=== PATIENT | female | born 1945 | race Caucasian/White ===

== ENCOUNTER → 2019-01-11 | Outpatient (CLI) | payer MEDICARE ==
[2019-01-11 09:59] LABS: HCT 46.1 % (34.0-46.0); HGB 14.9 gm/dL (11.4-16.0); MCH 29.9 pg (25.0-35.0); MCHC 32.4 g/dL (31.0-37.0); MCV 92.2 fL (80.0-100.0); Mean Platelet Volume 7.1; Platelet Count 283 k/uL (150-450); RDW 14.7 % (11.5-15.5); WBC 5.5 k/uL (3.8-10.6)
[2019-01-11 16:19] LABS: African American GFR (CKD) 104.1 (60.0-200.0); Albumin/Globulin Ratio 2.35 (1.60-3.17); BUN/Creat Ratio 31.67 Ratio (12.00-20.00); Calcium 8.9 mg/dL (8.7-10.3); Globulin 1.7 g/dL (1.6-3.3); Potassium 3.9 mmol/L (3.5-5.5); Total Bilirubin 0.5 mg/dL (0.2-1.2); Total Protein 5.7 g/dL (6.2-8.2)
[2019-01-11 21:04] LABS: Hemoglobin A1C 5.7 % (4.0-6.0)
== END | disposition home or self-care (01) ==
LOC: LABWHC1 08:51
PROVIDERS: ATTEND Physician Assistant
DX: R21 Rash and other nonspecific skin eruption (principal)
CPT/HCPCS: 36415; 80053; 83036; 84443; 85027

== ENCOUNTER 2020-09-07 09:59 | Observation (INO) | payer MEDICARE ==
[2020-09-07] MEDS ORDERED: SODIUM CHLORIDE 0.9% 500 ML 500 ML IV STA (10:21)
[2020-09-07] MEDS ORDERED: ASPIRIN 81 MG PO STA (10:21)
--- NOTE | 2020-09-07 10:24 | ED ---
General Adult HPI - General Chief complaint: Chest Pain Stated complaint: Chest pain/sent by PCP Time Seen by Provider: 09/07/20 10:05 Source: patient Mode of arrival: ambulatory Limitations: no limitations - History of Present Illness Initial comments: 75-year-old female without any significant past medical history presents to the emergency room for a chief complaint of chest discomfort. She was sent in by primary care. Patient states that she is getting over a rotavirus, was diagnosed this about 4 weeks ago. States that at least since that time if not before she has had a constant low intensity pressure in her chest. States she also gets winded at the grocery store. Patient states she thinks she is fine by her primary care wanted her to be seen. Patient denies any radiating pain. Denies pain worsening on exertion. Patient does not have a smoking history. Patient also reports she has had high blood pressure for the past week. She does not take any blood pressure medication. She was not started on blood pressure medications today at the primary care provider's office. Patient has no other complaints at this time including shortness of breath, abdominal pain, nausea or vomiting, headache, or visual changes. - Related Data Home Medications Medication Instructions Recorded Confirmed Ascorbic Acid [Vitamin C] 500 mg PO DAILY 09/07/20 09/07/20 Multivit-Min/FA/Lycopen/Lutein 1 tab PO DAILY 09/07/20 09/07/20 [Centrum Silver Tablet] Allergies Allergy/AdvReac Type Severity Reaction Status Date / Time No Known Allergies Allergy Verified 09/07/20 11:03 Review of Systems ROS Statement: Those systems with pertinent positive or pertinent negative responses have been documented in the HPI. ROS Other: All systems not noted in ROS Statement are negative. Past Medical History Past Medical History: Liver Disease Additional Past Medical History / Comment(s): hx. hepatitis as a child, hx. colon polyps History of Any Multi-Drug Resistant Organisms: None Reported Past Surgical History: Appendectomy, Section Additional Past Surgical History / Comment(s): colonoscopy Past Anesthesia/Blood Transfusion Reactions: No Reported Reaction Past Psychological History: No Psychological Hx Reported Past Alcohol Use History: Rare Past Drug Use History: None Reported General Exam Limitations: no limitations General appearance: alert, in no apparent distress Head exam: Present: atraumatic, normocephalic, normal inspection Eye exam: Present: normal appearance, PERRL, EOMI. Absent: scleral icterus, conjunctival injection, periorbital swelling ENT exam: Present: normal exam, mucous membranes moist Neck exam: Present: normal inspection, full ROM. Absent: tenderness, meningis mus, lymphadenopathy Respiratory exam: Present: normal lung sounds bilaterally. Absent: respiratory distress, wheezes, rales, rhonchi, stridor Cardiovascular Exam: Present: regular rate, normal rhythm, normal heart sounds. Absent: systolic murmur, diastolic murmur, rubs, gallop, clicks GI/Abdominal exam: Present: soft, normal bowel sounds. Absent: distended, tenderness, guarding, rebound, rigid Course Vital Signs 09/07/20 10:01 Temperature 97.7 F Pulse Rate 62 Respiratory 18 Rate Blood Pressure 152/86 O2 Sat by Pulse 98 Oximetry EKG Findings - EKG Comments: EKG Findings:: Sinus bradycardia, ventricular rate 56, NM interval 168, QTC 426 Medical Decision Making - Medical Decision Making Vital are stable. Vitals are stable. CBC CMP unremarkable. EKG nonischemic. Troponin negative. Normal age-adjusted d-dimer. Chest x-ray shows no acute cardiopulmonary process. According to patient, she has never had a cardiac workup. Discussed with primary care provider, at this time patient will be admitted for cardial station. - Lab Data Result diagrams: 09/07/20 10:22 09/07/20 10:22 Lab Results 09/07/20 09/07/20 09/07/20 Range/Units 10:22 10:22 10:22 WBC 6.2 (3.8-10.6) k/uL RBC 5.14 (3.80-5.40) m/uL Hgb 15.7 (11.4-16.0) gm/dL Hct 47.0 H (34.0-46.0) % MCV 91.4 (80.0-100.0) fL MCH 30.6 (25.0-35.0) pg MCHC 33.4 (31.0-37.0) g/dL RDW 13.3 (11.5-15.5) % Plt Count 271 (150-450) k/uL MPV 7.0 Neutrophils % 67 % Lymphocytes % 23 % Monocytes % 5 % Eosinophils % 3 % Basophils % 1 % Neutrophils # 4.2 (1.3-7.7) k/uL Lymphocytes # 1.4 (1.0-4.8) k/uL Monocytes # 0.3 (0-1.0) k/uL Eosinophils # 0.2 (0-0.7) k/uL Basophils # 0.0 (0-0.2) k/uL PT 10.2 (9.0-12.0) sec INR 0.9 (<1.2) APTT 25.5 (22.0-30.0) sec D-Dimer 0.62 H (<0.60) mg/L FEU Sodium 141 (137-145) mmol/L Potassium 4.1 (3.5-5.1) mmol/L Chloride 106 (98-107) mmol/L Carbon Dioxide 27 (22-30) mmol/L Anion Gap 8 mmol/L BUN 17 (7-17) mg/dL Creatinine 0.67 (0.52-1.04) mg/dL Est GFR (CKD-EPI)AfAm >90 (>60 ml/min/1.73 sqM) Est GFR (CKD-EPI)NonAf 86 (>60 ml/min/1.73 sqM) Glucose 101 H (74-99) mg/dL Calcium 8.9 (8.4-10.2) mg/dL Magnesium 2.0 (1.6-2.3) mg/dL Total Bilirubin 0.5 (0.2-1.3) mg/dL AST 25 (14-36) U/L ALT 19 (4-34) U/L Alkaline Phosphatase 141 H (38-126) U/L Troponin I (0.000-0.034) ng/mL NT-Pro-B Natriuret Pep pg/mL Total Protein 6.8 (6.3-8.2) g/dL Albumin 4.1 (3.5-5.0) g/dL Lipase 46 (23-300) U/L 09/07/20 09/07/20 Range/Units 10:22 10:22 WBC (3.8-10.6) k/uL RBC (3.80-5.40) m/uL Hgb (11.4-16.0) gm/dL Hct (34.0-46.0) % MCV (80.0-100.0) fL MCH (25.0-35.0) pg MCHC (31.0-37.0) g/dL RDW (11.5-15.5) % Plt Count (150-450) k/uL MPV Neutrophils % % Lymphocytes % % Monocytes % % Eosinophils % % Basophils % % Neutrophils # (1.3-7.7) k/uL Lymphocytes # (1.0-4.8) k/uL Monocytes # (0-1.0) k/uL Eosinophils # (0-0.7) k/uL Basophils # (0-0.2) k/uL PT (9.0-12.0) sec INR (<1.2) APTT (22.0-30.0) sec D-Dimer (<0.60) mg/L FEU Sodium (137-145) mmol/L Potassium (3.5-5.1) mmol/L Chloride (98-107) mmol/L Carbon Dioxide (22-30) mmol/L Anion Gap mmol/L BUN (7-17) mg/dL Creatinine (0.52-1.04) mg/dL Est GFR (CKD-EPI)AfAm (>60 ml/min/1.73 sqM) Est GFR (CKD-EPI)NonAf (>60 ml/min/1.73 sqM) Glucose (74-99) mg/dL Calcium (8.4-10.2) mg/dL Magnesium (1.6-2.3) mg/dL Total Bilirubin (0.2-1.3) mg/dL AST (14-36) U/L ALT (4-34) U/L Alkaline Phosphatase (38-126) U/L Troponin I <0.012 (0.000-0.034) ng/mL NT-Pro-B Natriuret Pep 52 pg/mL Total Protein (6.3-8.2) g/dL Albumin (3.5-5.0) g/dL Lipase (23-300) U/L Disposition Clinical Impression: Chest pain Disposition: ADMITTED IP TO THIS HOSP Condition: Good Is patient prescribed a controlled substance at d/c from ED?: No Referrals: Jluis Chopra MD [Primary Care Provider] - 1-2 days Time of Disposition: 13:09
--- NOTE | 2020-09-07 10:37 | XR ---
EXAMINATION TYPE: XR chest 2V DATE OF EXAM: 09/07/2020 COMPARISON: NONE HISTORY: Chest heaviness and pain. TECHNIQUE: Frontal and lateral views of the chest are obtained. FINDINGS: Overlying EKG leads. There is mild chronic parenchymal change without suspicious focal air space opacity, pleural effusion, or pneumothorax seen. The cardiac silhouette size is within normal limits. The osseous structures are intact. Overlying EKG leads. Slightly elevated left hemidiaphrag m. IMPRESSION: No acute cardiopulmonary process.
[2020-09-07 10:39] LABS: Basophils % (A) 1 %; Eosinophils # (A) 0.2 k/uL (0-0.7); Eosinophils % (A) 3 %; HGB 15.7 gm/dL (11.4-16.0); Lymphocytes # (A) 1.4 k/uL (1.0-4.8); Lymphocytes % (A) 23 %; MCH 30.6 pg (25.0-35.0); MCHC 33.4 g/dL (31.0-37.0); MCV 91.4 fL (80.0-100.0); Monocytes # (A) 0.3 k/uL (0-1.0); Monocytes % (A) 5 %; Neutrophils # (A) 4.2 k/uL (1.3-7.7); Neutrophils % (A) 67 %; Platelet Count 271 k/uL (150-450); RBC 5.14 m/uL (3.80-5.40); RDW 13.3 % (11.5-15.5); WBC 6.2 k/uL (3.8-10.6)
[2020-09-07 10:53] LABS: ALT 19 U/L (4-34); AST 25 U/L (14-36); African American GFR (CKD) >90 (>60 ml/min/1.73 sqM); Albumin 4.1 g/dL (3.5-5.0); Alkaline Phosphatase 141 U/L (38-126); Anion Gap 8 mmol/L; Blood Urea Nitrogen 17 mg/dL (7-17); Calcium 8.9 mg/dL (8.4-10.2); Carbon Dioxide 27 mmol/L (22-30); Chloride 106 mmol/L (98-107); Glucose 101 mg/dL (74-99); Lipase 46 U/L (23-300); Non-African American GFR(CKD) 86 (>60 ml/min/1.73 sqM); Potassium 4.1 mmol/L (3.5-5.1); Sodium 141 mmol/L (137-145); Total Bilirubin 0.5 mg/dL (0.2-1.3); Total Protein 6.8 g/dL (6.3-8.2)
[2020-09-07 10:54] LABS: INR 0.9 (<1.2); Partial Thromboplastin Time 25.5 sec (22.0-30.0); Prothrombin Time 10.2 sec (9.0-12.0)
[2020-09-07 12:09] LABS: D-Dimer 0.62 mg/L FEU (<0.60)
[2020-09-07] MEDS ORDERED: NITROGLYCERIN SL TABS 0.4 MG TAB SUBLINGUAL PRN (12:58)
[2020-09-07] MEDS: BENZONATATE 100 MG CAP PO SCH ×2 (18:09→22:51)
[2020-09-07] MEDS: hydrALAZINE HCL 20 MG/ML 1 ML VIAL IVP PRN (18:49)
[2020-09-07] MEDS: ACETAMINOPHEN TAB 325 MG TAB PO PRN (18:50)
--- NOTE | 2020-09-07 20:25 | CT ---
EXAMINATION TYPE: CT angio chest DATE OF EXAM: 09/07/2020 8:11 PM COMPARISON: Same day radiographs. HISTORY: chest pain CT DLP: 432.9 mGycm Automated exposure control for dose reduction was used. CONTRAST: CTA scan of the thorax is performed with IV Contrast, patient injected with 100 mL of Isovue 370, pul monary embolism protocol. MIP images are created and reviewed. FINDINGS: LUNGS: There is minimal right middle lobe atelectasis/scarring. Otherwise the lungs are grossly clear , there is no concerning parenchymal mass or nodule identified. There is no pleural effusion or pne umothorax seen. The tracheobronchial tree is patent. MEDIASTINUM: There is satisfactory enhancement of the pulmonary artery and its branches, there is no CT evidence for pulmonary embolism. There are no greater than 1 cm hilar or mediastinal lymph nodes. No pericardial effusion is seen. OTHER: No additional significant abnormality is seen. IMPRESSION: NO ACUTE PE OR OTHER CARDIOPULMONARY ABNORMALITY. Right middle lobe atelectasis/scarring.
[2020-09-07 20:32] VITALS: RESP 16
[2020-09-08] MEDS: hydrALAZINE HCL 20 MG/ML 1 ML VIAL IVP PRN (04:35)
[2020-09-08] MEDS: ACETAMINOPHEN TAB 325 MG TAB PO PRN ×2 (04:36→11:38)
--- NOTE | 2020-09-08 06:58 | P.HPIM ---
History of Present Illness H&P Date: 09/08/20 Chief Complaint: Chest discomfort 75-year-old female without significant medical history. She was admitted to the hospital for continuous chest heaviness/chest discomfort for 3 day duration. Last Sunday patient had an episode of severe chest heaviness with a heart rate of 43 and a blood pressure of 210/110; chest heaviness continue until seen in primary care office. Patient has strong family medical history of cardiovascular events. Patient was sent to the emergency department for further diagnostic workup. Patient's troponins were negative 3, no acute EKG changes. Patient had hypertensive episodes throughout the night hydralazine 10 mg IV push every 6 hours was ordered. Patient continues to endorse chest discomfort with exertion, and mild headache. Patient denies fever, chills, shortness of breath, abdominal pain, nausea, vomiting or diarrhea. Patient currently in no acute signs of distress. Awaiting recommendations from cardiology for treatment plan Review of Systems Constitutional: Reports as per HPI Ears, nose, mouth and throat: Reports as per HPI Cardiovascular: Reports high blood pressure Respiratory: Reports as per HPI Gastrointestinal: Reports as per HPI Genitourinary: Reports as per HPI Menstruation: Reports as per HPI Musculoskeletal: Reports as per HPI Integumentary: Reports as per HPI Neurological: Reports headaches Psychiatric: Reports as per HPI Endocrine: Reports as per HPI Hematologic/Lymphatic: Reports as per HPI Allergic/Immunologic: Reports as per HPI Past Medical History Past Medical History: Liver Disease Additional Past Medical History / Comment(s): Pt states she tested covid + on 08/18/[address] Other hx: Pt has been monitoring B/P this week and it has been elevated, hepatitis as a child, scarletina, benign colon polyp History of Any Multi-Drug Resistant Organisms: None Reported Past Surgical History: Appendectomy, Section Additional Past Surgical History / Comment(s): colonoscopy/benign polyp, laser surgery bilaterally for vision correction. Past Anesthesia/Blood Transfusion Reactions: No Reported Reaction Past Psychological History: No Psychological Hx Reported Additional Psychological History / Comment(s): Pt resides with her spouse. She is independent. Smoking Status: Never smoker Past Alcohol Use History: Rare Past Drug Use History: None Reported - Past Family History Mother Family Medical History: CVA/TIA Additional Family Medical History / Comment(s): CVAs Father Additional Family Medical History / Comment(s): Father drowned saving a child. Medications and Allergies Home Medications and Allergies Comment(s): Medications and ALLERGIES reviewed Home Medications Medication Instructions Recorded Confirmed Type Ascorbic Acid [Vitamin C] 500 mg PO DAILY 09/07/20 09/07/20 History Multivit-Min/FA/Lycopen/Lutein 1 tab PO DAILY 09/07/20 09/07/20 History [Centrum Silver Tablet] Allergies Allergy/AdvReac Type Severity Reaction Status Date / Time No Known Allergies Allergy Verified 09/07/20 11:03 Physical Exam Vitals: Vital Signs Temp Pulse Pulse Resp BP BP BP 09/08/20 03:00 65 16 150/68 09/07/20 20:00 97.8 F 66 16 153/67 09/07/20 18:03 98.0 F 61 18 182/82 09/07/20 13:23 55 L 18 171/87 09/07/20 10:01 97.7 F 62 18 152/86 Pulse Ox 09/08/20 03:00 96 09/07/20 20:00 97 09/07/20 18:03 98 09/07/20 13:23 96 09/07/20 10:01 98 Intake and Output 09/07/20 09/07/20 09/08/20 14:59 22:59 06:59 Other: # Voids 1 1 Weight 90.718 kg - Constitutional General appearance: cooperative - EENT Eyes: EOMI, PERRLA Ears: bilateral: normal - Neck Neck: normal ROM Carotids: bilateral: upstroke normal - Respiratory Respiratory: bilateral: CTA (Anterior posterior lung tiwari) - Cardiovascular Sinus bradycardia Heart rate: 58 Rhythm: regular Heart sounds: normal: S1, S2 radial pulse Peripheral Pulses: bilateral: Normal dorsalis pedis Peripheral Pulses: bilateral: Normal - Gastrointestinal General gastrointestinal: normal bowel sounds - Integumentary Integumentary: normal - Neurologic Neurologic: CNII-XII intact - Musculoskeletal Musculoskeletal: gait normal, strength equal bilaterally - Psychiatric Psychiatric: A&O x's 3, appropriate affect, intact judgment & insight Results CBC & Chem 7: 09/07/20 10:22 09/07/20 10:22 Labs: Abnormal Lab Results - Last 24 Hours (Table) 09/07/20 09/07/20 09/07/20 Range/Units 10:22 10:22 10:22 Hct 47.0 H (34.0-46.0) % D-Dimer 0.62 H (<0.60) mg/L FEU Glucose 101 H (74-99) mg/dL Alkaline Phosphatase 141 H (38-126) U/L Abdominal x-ray: report reviewed CT scan - chest: report reviewed Thrombosis Risk Factor Assmnt - Choose All That Apply Any of the Below Risk Factors Present?: Yes Each Factor Represents 1 point: Obesity (BMI >25) Other Risk Factors: Yes Each Risk Factor Represents 3 Points: Age 75 years or older Other congenital or acquired thrombophilia - If yes, enter type in comment: No Thrombosis Risk Factor Assessment Total Risk Factor Score: 4 Thrombosis Risk Factor Assessment Level: Moderate Risk Assessment and Plan Assessment: Chest painnegative troponins 3, no acute EKG changesconsultation with cardiology for recommendations and treatment plan Hypertensioncontinue hydralazine 10 mg IV push every 6 hours for blood pressure greater than 160/90we will add oral antihypertensive once cleared by cardiology Headacheanalgesics as needed Continue to monitor vital signs and diagnostic testing Continue medical management Further recommendations to come based on patient's clinical condition Time with Patient: Greater than 30
[2020-09-08 07:49] LABS: Basophils % (A) 0 %; Eosinophils # (A) 0.1 k/uL (0-0.7); Eosinophils % (A) 2 %; HCT 45.1 % (34.0-46.0); HGB 15.2 gm/dL (11.4-16.0); Lymphocytes # (A) 1.3 k/uL (1.0-4.8); Lymphocytes % (A) 17 %; MCH 30.9 pg (25.0-35.0); MCHC 33.7 g/dL (31.0-37.0); MCV 91.6 fL (80.0-100.0); Mean Platelet Volume 7.1; Monocytes # (A) 0.4 k/uL (0-1.0); Monocytes % (A) 5 %; Neutrophils # (A) 5.5 k/uL (1.3-7.7); Neutrophils % (A) 74 %; Platelet Count 279 k/uL (150-450); RBC 4.93 m/uL (3.80-5.40); RDW 13.4 % (11.5-15.5); WBC 7.4 k/uL (3.8-10.6)
[2020-09-08 08:02] LABS: ALT 18 U/L (4-34); AST 26 U/L (14-36); African American GFR (CKD) >90 (>60 ml/min/1.73 sqM); Albumin 3.6 g/dL (3.5-5.0); Alkaline Phosphatase 115 U/L (38-126); Anion Gap 7 mmol/L; Blood Urea Nitrogen 17 mg/dL (7-17); Calcium 8.8 mg/dL (8.4-10.2); Carbon Dioxide 24 mmol/L (22-30); Chloride 108 mmol/L (98-107); Cholesterol 220 mg/dL (<200); Glucose 110 mg/dL (74-99); HDL Cholesterol 49 mg/dL (40-60); LDL Cholesterol,Calculated 141 mg/dL (0-99); Non-African American GFR(CKD) >90 (>60 ml/min/1.73 sqM); Potassium 4.6 mmol/L (3.5-5.1); Sodium 139 mmol/L (137-145); Total Bilirubin 0.6 mg/dL (0.2-1.3); Total Protein 6.3 g/dL (6.3-8.2); Triglycerides 148 mg/dL (<150)
[2020-09-08] MEDS: BENZONATATE 100 MG CAP PO SCH ×2 (08:17→17:31)
[2020-09-08] MEDS ORDERED: ALPRAZolam 0.5 MG TAB PO PRN (08:34)
[2020-09-08] MEDS ORDERED: ATORVASTATIN 80 MG TAB PO STA (08:34)
[2020-09-08] MEDS ORDERED: ALPRAZolam 0.25 MG TAB PO PRN (08:34)
[2020-09-08] MEDS ORDERED: SODIUM CHLORIDE 0.9% 1,000 ML in EMPTY BAG 1 BAG IV ONE (08:34)
[2020-09-08] MEDS ORDERED: ASPIRIN 81 MG PO STA (08:35)
--- NOTE | 2020-09-08 08:56 | P.CRDCN ---
History of Present Illness History of present illness: HISTORY OF PRESENTING ILLNESS This is a pleasant 75-year-old female past medical history significant for hepatitis as a child. 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 We have been asked to see in consultation for chest pain. She states for the previous 4 weeks she has been experiencing episodes of exertional chest discomfort and shortness of breath. This has been occurring since she was diagnosed with COVID-19 early August. Her symptoms are worse with exertion and improved with rest. On Sunday she had an episode of palpitations where she felt like her heart was beating extremely hard. She checked her blood pressure at the time was over 200 systolic and her heart rate was 43. She saw her PCP in the office yesterday underwent an EKG that she was told was normal however was sent to the hospital for further cardiac testing. She is seen and examined resting comfortably sitting up in bed in no acute distress. She has no active symptoms of chest discomfort at this time. DIAGNOSTICS EKG reveals sinus mechanism with no acute ST or T wave abnormalities noted. Telemetry tracings indicate sinus mechanism. Chest xray negative for an acute cardiopulmonary process. CTA negative for pulmonary embolism with grossly clear lungs. Laboratory reviewed, CBC unremarkable, d-dimer 0.62, sodium 139, potassium 4.6, creatinine 0.54, magnesium 2.0, cardiac enzymes negative 3, NT proBNP 52, LDL 141, HDL 49 and total cholesterol 220. She takes no daily cardiac medications. REVIEW OF SYSTEMS At the time of my exam: CONSTITUTIONAL: Denies fever or chills. CARDIOVASCULAR: Denies chest pain, shortness of breath, orthopnea, PND or palpitations. RESPIRATORY: Denies cough. GASTROINTESTINAL: Denies abdominal pain, diarrhea, constipation, nausea or vomiting. MUSCULOSKELETAL: Denies myalgias. NEUROLOGIC: Denies numbness, tingling, headacbe or weakness. ENDOCRINE: Denies fatigue, weight change, polydipsia or polyurina. GENITOURINARY: Denies burning, hematuria or urgency with micturation. HEMATOLOGIC: Denies history of anemia or bleeding. PHYSICAL EXAMINATION Blood pressure 127/76 heart rate 73 afebrile and maintaining oxygen saturation on room air. CONSTITUTIONAL: No apparent distress. HEENT: Head is normocephalic. Pupils are equal, round. Sclerae anicteric. Mucous membranes of the mouth are moist. No JVD. No carotid bruit. CHEST EXAMINATION: Lungs are clear to auscultation. No chest wall tenderness is noted on palpation or with deep breathing. HEART EXAMINATION: Regular rate and rhythm. S1, S2 heard. No murmurs, gallops or rub. ABDOMEN: Soft, nontender. Positive bowel sounds. EXTREMITIES: 2+ peripheral pulses, no lower extremity edema and no calf tenderness. NEUROLOGIC EXAMINATION: Patient is awake, alert and oriented x3. ASSESSMENT Unstable angina Hypertension Dyslipidemia Obesity, BMI 32 History of hepatitis as a child. PLAN Symptoms are suggestive of unstable angina. We recommend proceeding with cardiac catheterization to assess for underlying coronary artery disease. I have discussed the risks, benefits and alternative therapies for the above-mentioned procedure and for both sedation/analgesia as well as necessary blood product administration, if indicated, as they pertain to this patient. The patient has indicated understanding and acceptance of the risks and procedures discussed. Questions have been answered appropriately and she is agreeable to move forward with the above-stated procedure. Initiate losartan 25 mg daily and metoprolol 12.5 mg twice a day. ASCVD risk is 20%, recommend atorvastatin 40 mg daily. Will increase as tolerated. Obtain 2-D echocardiogram and Doppler study to assess cardiac structure and function. Further recommendations to follow based upon clinical course. Thank you kindly for this consultation. Nurse Practitioner note has been reviewed, I agree with a documented findings and plan of care. Patient was seen and examined. Past Medical History Past Medical History: Liver Disease Additional Past Medical History / Comment(s): Pt states [facility] Other hx: Pt has been monitoring B/P this week and it has been elevated, hepatitis as a child, scarletina, benign colon polyp History of Any Multi-Drug Resistant Organisms: None Reported Past Surgical History: Appendectomy, Section Additional Past Surgical History / Comment(s): colonoscopy/benign polyp, laser surgery bilaterally for vision correction. Past Anesthesia/Blood Transfusion Reactions: No Reported Reaction Past Psychological History: No Psychological Hx Reported Additional Psychological History / Comment(s): Pt resides with her spouse. She is independent. Smoking Status: Never smoker Past Alcohol Use History: Rare Past Drug Use History: None Reported - Past Family History Mother Family Medical History: CVA/TIA Additional Family Medical History / Comment(s): CVAs Father Additional Family Medical History / Comment(s): Father drowned saving a child. Medications and Allergies Home Medications Medication Instructions Recorded Confirmed Type Ascorbic Acid [Vitamin C] 500 mg PO DAILY 09/07/20 09/07/20 History Multivit-Min/FA/Lycopen/Lutein 1 tab PO DAILY 09/07/20 09/07/20 History [Centrum Silver Tablet] Allergies Allergy/AdvReac Type Severity Reaction Status Date / Time No Known Allergies Allergy Verified 09/07/20 11:03 Physical Exam Vitals: Vital Signs Temp Pulse Pulse Resp BP BP BP 09/08/20 08:25 97 F L 73 16 127/76 09/08/20 03:00 65 16 150/68 09/07/20 20:00 97.8 F 66 16 153/67 09/07/20 18:03 98.0 F 61 18 182/82 09/07/20 13:23 55 L 18 171/87 09/07/20 10:01 97.7 F 62 18 152/86 Pulse Ox 09/08/20 08:25 97 09/08/20 03:00 96 09/07/20 20:00 97 09/07/20 18:03 98 09/07/20 13:23 96 09/07/20 10:01 98 Intake and Output 09/07/20 09/08/20 09/08/20 22:59 06:59 14:59 Other: # Voids 1 1 Results 09/08/20 06:42 09/08/20 06:42 Cardiac Enzymes 09/07/20 09/07/20 09/07/20 Range/Units 10:22 10:22 13:27 AST 25 (14-36) U/L Troponin I <0.012 <0.012 (0.000-0.034) ng/mL 09/07/20 09/08/20 Range/Units 16:11 06:42 AST 26 (14-36) U/L Troponin I <0.012 (0.000-0.034) ng/mL Coagulation 09/07/20 Range/Units 10:22 PT 10.2 (9.0-12.0) sec APTT 25.5 (22.0-30.0) sec Lipids 09/08/20 Range/Units 06:42 Triglycerides 148 (<150) mg/dL Cholesterol 220 H (<200) mg/dL HDL Cholesterol 49 (40-60) mg/dL CBC 09/07/20 09/08/20 Range/Units 10:22 06:42 WBC 6.2 7.4 (3.8-10.6) k/uL RBC 5.14 4.93 (3.80-5.40) m/uL Hgb 15.7 15.2 (11.4-16.0) gm/dL Hct 47.0 H 45.1 (34.0-46.0) % Plt Count 271 279 (150-450) k/uL Comprehensive Metabolic Panel 09/07/20 09/08/20 Range/Units 10:22 06:42 Sodium 141 139 (137-145) mmol/L Potassium 4.1 4.6 (3.5-5.1) mmol/L Chloride 106 108 H (98-107) mmol/L Carbon Dioxide 27 24 (22-30) mmol/L BUN 17 17 (7-17) mg/dL Creatinine 0.67 0.54 (0.52-1.04) mg/dL Glucose 101 H 110 H (74-99) mg/dL Calcium 8.9 8.8 (8.4-10.2) mg/dL AST 25 26 (14-36) U/L ALT 19 18 (4-34) U/L Alkaline Phosphatase 141 H 115 (38-126) U/L Total Protein 6.8 6.3 (6.3-8.2) g/dL Albumin 4.1 3.6 (3.5-5.0) g/dL Current Medications Generic Name Dose Route Start Last Admin Trade Name Tdq PRN Reason Stop Dose Admin Acetaminophen 650 mg 09/07/20 18:24 09/08/20 04:36 Acetaminophen Tab 325 Mg Tab PO 650 mg Q6HR PRN Administration Fever and/ or Pain Ascorbic Acid 500 mg 09/08/20 09:00 09/08/20 08:17 Ascorbic Acid 500 Mg Tab PO 500 mg DAILY ALBERTO Administration Aspirin 325 mg 09/08/20 09:00 09/08/20 08:17 Aspirin 325 Mg Tab PO 325 mg DAILY ALBERTO Administration Benzonatate 100 mg 09/07/20 17:15 09/08/20 08:17 Benzonatate 100 Mg Cap PO 100 mg TID ALBERTO Administration Hydralazine HCl 10 mg 09/07/20 18:23 09/08/20 04:35 Hydralazine Hcl 20 Mg/Ml 1 Ml Vial IVP 10 mg Q8HR PRN Administration Blood Pressure - High Multivitamins 1 each 09/08/20 09:00 09/08/20 08:17 Multivitamins, Thera 1 Each Tab PO 1 each DAILY ALBERTO Administration Nitroglycerin 0.4 mg 09/07/20 12:58 Nitroglycerin Sl Tabs 0.4 Mg Tab SUBLINGUAL Q5M PRN Chest Pain Intake and Output 09/07/20 09/08/20 09/08/20 22:59 06:59 14:59 Other: # Voids 1 1 09/08/20 06:42 09/08/20 06:42
[2020-09-08] MEDS ORDERED: ASCORBIC ACID 500 MG TAB PO SCH (09:00)
[2020-09-08] MEDS ORDERED: METOPROLOL TARTRATE 12.5 MG TAB PO SCH (09:00)
[2020-09-08] MEDS ORDERED: LOSARTAN 50 MG TAB PO SCH (09:00)
[2020-09-08] MEDS ORDERED: MULTIVITAMINS, THERA 1 EACH TAB PO SCH (09:00)
[2020-09-08] MEDS ORDERED: ASPIRIN 325 MG TAB PO SCH (09:00)
--- NOTE | 2020-09-08 10:55 | ECHOF ---
Referral Reason:cp MEASUREMENTS -------- HEIGHT: 167.6 cm WEIGHT: 90.7 kg BP: 127/76 IVSd: 1.3 cm (0.6 - 1.1) LVIDd: 2.7 cm (3.9 - 5.3) LVPWd: 1.5 cm (0.6 - 1.1) IVSs: 1.9 cm LVIDs: 1.9 cm LVPWs: 1.8 cm LAESV Index (A-L): 20.42 ml/m Ao Diam: 3.0 cm (2.0 - 3.7) AV Cusp: 2.0 cm (1.5 - 2.6) LA Diam: 2.4 cm (2.7 - 3.8) MV EXCURSION: 13.536 mm (> 18.000) MV EF SLOPE: 42 mm/s (70 - 150) EPSS: 0.5 cm MV E Marcus: 0.67 m/s MV DecT: 249 ms MV A Marcus: 0.92 m/s MV E/A Ratio: 0.73 AR PHT: 251 ms RAP: 5.00 mmHg RVSP: 15.61 mmHg FINDINGS -------- This was a technically good study. The left ventricular size is normal. There is mild concentric left ventricular hypertrophy. Overa ll left ventricular systolic function is normal with, an EF between 55 - 60 %. The diastolic fillin g pattern is normal for the age of the patient 10.10. The right ventricle is normal in size. The left atrial size is normal. Normal LA size by volume 22+/-6 ml/m2. The right atrial size is normal. The aortic valve is trileaflet and appears structurally normal. Trace amount of aortic regurgitatio n. The mitral valve is normal. There is trace mitral regurgitation. The tricuspid valve appears structurally normal. Trace tricuspid regurgitation present. Right daniel tricular systolic pressure is normal at < 35 mmHg. There is no pulmonic regurgitation present. The aortic root size is normal. Normal inferior vena cava with normal inspiratory collapse consistent with estimated right atrial pre ssure of 5 mmHg. There is no pericardial effusion. CONCLUSIONS -------- 1. The left ventricular size is normal. 2. There is mild concentric left ventricular hypertrophy. 3. Overall left ventricular systolic function is normal with, an EF between 55 - 60 %. 4. The diastolic filling pattern is normal for the age of the patient 10.10 5. Trace amount of aortic regurgitation. 6. There is trace mitral regurgitation. 7. Trace tricuspid regurgitation present. 8. There is no pericardial effusion. FRAME BENDER: Adeline Porras RDCS
[2020-09-08] MEDS ORDERED: LIDOCAINE 1% INJ 10MG/ML (20 ML MDV) SQ ONE (12:36)
[2020-09-08] MEDS ORDERED: IV FLUID CONTINUATION 1,000 ML IV ONE (12:36)
[2020-09-08] MEDS ORDERED: MIDAZOLAM 2 MG/2 ML VIAL IV ONE (12:36)
[2020-09-08] MEDS ORDERED: VERAPAMIL SYRINGE (5 MG/10 ML) INTRAARTER ONE (12:42)
[2020-09-08] MEDS ORDERED: IOPAMIDOL-370 100ML BTL INJ ONE (12:52)
--- NOTE | 2020-09-08 15:28 | CC ---
CARDIAC CATHETERIZATION REPORT DATE OF SERVICE: 09/08/2020. PROCEDURE: Left heart catheterization and coronary angiography. PERFORMED BY: Dr. Valentina Banuelos. Moderate conscious sedation time was 17 minutes. Patient was administered Versed. Oxygen saturation, hemodynamics and EKG were monitored closely. CLINICAL INFORMATION: Mrs. Anastasia Vines is a 75-year-old lady with a history of hypertension, hyperlipidemia came into the hospital with episodes of exertional chest pain suggestive of angina. After due discussion regarding risks, benefits, options, I advised coronary angiography given her presentation. She has been having classic typical exertional chest pain. Risks, benefits, options, rationale were explained. PROCEDURE NOTE: Under local anesthesia and strict aseptic precautions, a 6-[place] introducer was placed in the right radial artery. Using a JL3.5 and JR4 catheters, I performed coronary angiography and the same right catheter was used to check LV pressure but LV gram was not performed. CARDIAC CATHETERIZATION FINDINGS: The left ventricular end-diastolic pressure was about 12 mmHg without any gradient across aortic valve. CORONARY ANGIOGRAPHY FINDINGS: RIGHT CORONARY ARTERY: Large dominant tortuous vessel distally bifurcates into a large PDA and PLV, both of which supply a sizable amount of myocardium. No significant disease in the dominant RCA. LEFT MAIN CORONARY ARTERY: Short patent disease-free vessel that immediately bifurcates into LAD and circumflex. LEFT ANTERIOR DESCENDING CORONARY ARTERY: Good caliber vessel extends along the anterior wall. No significant disease, supplies a sizable amount of myocardium, very tortuous. LAD runs all the way to the apex giving off septal and diagonal branches. LEFT POSTERIOR CIRCUMFLEX CORONARY ARTERY: Large caliber, good distribution vessel, very tortuous, runs laterally, has no significant disease. Minor irregularities noted. This is a nondominant vessel. FINAL IMPRESSION: This patient has normal left ventricular end-diastolic pressure with no gradient across aortic valve. She has a right dominant system. No obstructive coronary artery disease. Large caliber coronaries, tortuous without significant disease. RECOMMENDATIONS: Findings were discussed with the patient, her and Ja the physician assistant superintendent for curriculum of Dr. Jluis Chopra. She can be discharged today on medical therapy. Patient is advised Crestor 5 mg every other day and losartan for blood pressure control. The patient is reluctant to take statins. I will see her in one week. Advised to be compliant with medications. MMODL / IJN: [id number] /
[2020-09-08 16:28] VITALS: TEMP 97.7
[2020-09-08 17:34] VITALS: BP 164/81; PULSE 70
[2020-09-09] MEDS ORDERED: HEPARIN SODIUM,PORCINE 10,000 UNIT in SODIUM CHLORIDE 0.9% 1,000 ML IRRIGATION PRN (07:00)
[2020-09-09] MEDS ORDERED: HEPARIN SODIUM,PORCINE 2,500 UNIT in SODIUM CHLORIDE 0.9% 250 ML IRRIGATION PRN (07:00)
[2020-09-09] MEDS ORDERED: ASPIRIN 81 MG PO SCH (09:00)
[2020-09-09] MEDS ORDERED: ATORVASTATIN 40 MG TAB PO SCH (09:00)
== END 2020-09-08 19:35 | disposition home or self-care (01) ==
LOC: EC 09:59 → 6NMEDSUR 12:44 → 3SCARD 17:06
PROVIDERS: ADMIT Family Medicine; ATTEND Family Medicine
DX: R07.9 Chest pain, unspecified (principal); I10 Essential (primary) hypertension; E78.5 Hyperlipidemia, unspecified; E66.9 Obesity, unspecified; Z20.822 Contact with and (suspected) exposure to COVID-19; Z68.32 Body mass index [BMI] 32.0-32.9, adult; Z86.010 Personal history of colon polyps; Z90.89 Acquired absence of other organs; Z86.16 Personal history of COVID-19; Z98.891 History of uterine scar from previous surgery; Z82.3 Family history of stroke; Z86.19 Personal history of other infectious and parasitic diseases
CPT/HCPCS: 96376; 96361 ×2; 96374; 99285; 36415; 93005; 93306; 93458; 85379; 83880; 80061; 80053 ×2; 83690; 83735 ×2; 84484; 85025 ×2; 85610; 85730; 87636; 71046; 71275; G0378 ×2; C1894; C1769; J2250; J0360 ×2; J2001; J1644; Q9967 ×2

== ENCOUNTER → 2020-11-01 | Outpatient (CLI) | payer MEDICARE ==
[2020-11-01 15:20] LABS: Chol/HDL Ratio 3.51; LDL Cholesterol,Calculated 96.2 mg/dL (0.0-131.0); VLDL Calculation 31.8 mg/dL (5.00-40.00)
== END | disposition home or self-care (01) ==
LOC: LABWHC1 08:18
PROVIDERS: ATTEND Internal Medicine Interventional Cardiology
DX: E78.5 Hyperlipidemia, unspecified (principal)
CPT/HCPCS: 36415; 80061; 82550; 84450; 84460

== ENCOUNTER → 2022-02-22 | Outpatient (CLI) | payer MEDICARE ==
--- NOTE | 2022-02-22 11:54 | MM ---
Reason for Exam: Additional evaluation requested from abnormal screening. Last screening mammogram was performed less than 1 month ago. Patient History: Menarche at age 14. First Full-Term at age 19. Postmenopausal. Patient has history of breast feeding. 09/04/2000, Benign MG pre op needle loc LT - 2 on the left side. 1999, Cyst Aspiration on the Left side. Sister had breast cancer, age 83. Risk Values: Yue 5 year model risk: 3.6%. NCI Lifetime model risk: 6.8%. Prior Study Comparison: 11/27/1997 Bilateral Screening Mammogram, [facility]. 01/02/2000 Bilateral Screening Mammogram, [facility]. 02/13/2005 Bilateral Diagnostic Mammogram, [facility]. 02/15/2022 Bilateral MG 3D screening mammo w/cad, [facility]. Tissue Density: The breast tissue is heterogeneously dense. This may lower the sensitivity of mammography. Findings: Analyzed By CAD. The grouped microcalcifications within the medial right breast demonstrate round morphology and likely benign. The questioned nodularity within the far posterior lateral left breast does not persist with compression. Benign vascular calcifications within the breasts. Overall Assessment: Benign, BI-RAD 2 Management: Screening Mammogram of both breasts in 1 year. A clinical breast exam by your physician is recommended on an annual basis and results should be correlated with mammographic findings. This exam should not preclude additional follow-up of suspicious palpable abnormalities. Results were given to the patient verbally at the time of exam. Electronically signed and approved by: Mio Maurer D.O.
--- NOTE | 2022-02-22 11:54 | MM ---
Reason for Exam: Additional evaluation requested from abnormal screening. Last screening mammogram was performed less than 1 month ago. Patient History: Menarche at age 14. First Full-Term at age 19. Postmenopausal. Patient has history of breast feeding. 09/04/2000, Benign MG pre op needle loc LT - 2 on the left side. 1999, Cyst Aspiration on the Left side. Sister had breast cancer, age 83. Risk Values: Yue 5 year model risk: 3.6%. NCI Lifetime model risk: 6.8%. Prior Study Comparison: 11/27/1997 Bilateral Screening Mammogram, [facility]. 01/02/2000 Bilateral Screening Mammogram, [facility]. 02/13/2005 Bilateral Diagnostic Mammogram, [facility]. 02/15/2022 Bilateral MG 3D screening mammo w/cad, [facility]. Tissue Density: The breast tissue is heterogeneously dense. This may lower the sensitivity of mammography. Findings: Analyzed By CAD. The grouped microcalcifications within the medial right breast demonstrate round morphology and likely benign. The questioned nodularity within the far posterior lateral left breast does not persist with compression. Benign vascular calcifications within the breasts. Overall Assessment: Benign, BI-RAD 2 Management: Screening Mammogram of both breasts in 1 year. A clinical breast exam by your physician is recommended on an annual basis and results should be correlated with mammographic findings. This exam should not preclude additional follow-up of suspicious palpable abnormalities. Results were given to the patient verbally at the time of exam. Electronically signed and approved by: Mio Maurer D.O.
== END | disposition home or self-care (01) ==
LOC: RADMAMWWP 10:00
PROVIDERS: ATTEND Family Medicine
DX: R92.8 Other abnormal and inconclusive findings on diagnostic imaging of breast (principal)
CPT/HCPCS: 77066; G0279; 77062

== ENCOUNTER → 2023-03-13 | Outpatient (CLI) | payer MEDICARE ==
--- NOTE | 2023-03-13 07:46 | MM ---
Reason for Exam: Screening (asymptomatic). Last mammogram was performed 1 year(s) and 1 month(s) ago. Patient History: Menarche at age 14. First Full-Term at age 19. Postmenopausal. Patient has history of breast feeding. 09/04/2000, Benign MG pre op needle loc LT - 2 on the left side. 1999, Cyst Aspiration on the Left side. Sister had breast cancer, age 83. Risk Values: Yue 5 year model risk: 3.5%. NCI Lifetime model risk: 6.3%. Prior Study Comparison: 02/13/2005 Bilateral Diagnostic Mammogram, [facility]. 02/15/2022 Bilateral MG 3D screening mammo w/cad, [facility]. 02/22/2022 Bilateral MG 3D work up w/cad [facility], [facility]. Tissue Density: The breast tissue is heterogeneously dense. This may lower the sensitivity of mammography. Findings: Analyzed By CAD. There is no suspicious group of microcalcifications or new suspicious mass in either breast. Benign calcifications within both breasts. Overall Assessment: Benign, BI-RAD 2 Management: Screening Mammogram of both breasts in 1 year. A clinical breast exam by your physician is recommended on an annual basis and results should be correlated with mammographic findings. Note on Yue scores and lifetime risk: 1. A Yue score greater than 3% is considered moderate risk. If this is the case, consider specialist referral to assess eligibility for a risk reducing agent. If overall lifetime risk for the development of breast cancer is 20% or higher, the patient may qualify for future screening with alternating mammogram and breast MRI. Electronically signed and approved by: Mio Maurer D.O.
--- NOTE | 2023-03-13 08:48 | BD ---
EXAMINATION TYPE: Axial Bone Density DATE OF EXAM: 03/13/2023 CLINICAL HISTORY: 77 years old Female. ICD-10 CODE: Z12.31 screen mammo Z78.0 menopause Height: 66 Weight: 203.3 FRAX RISK QUESTIONS: Alcohol (3 or more units per day): no Family History (Parent hip fracture): yes Glucocorticoids (More than 3mos): no (Ex: prednisone, prednisolone, methylprednisolone, dexamethasone, and hydrocortisone). History of Fracture in Adulthood: no Secondary Osteoporosis: 1. Type 1 Diabetes: no 2. Hyperthyroidism: no 3. Menopause before 45: no 4. Malnutrition: no 5. Chronic liver disease: no Rheumatoid Arthritis: no Current Tobacco Use: no RISK FACTORS HISTORY OF: Surgery to Spine/Hip(right/left)/Wrist (right/left): no Family History of Osteoporosis: no Active: yes Diet low in dairy products/other sources of calcium: yes Postmenopausal woman: yes Lost more than 2 inches in height since high school: no MEDICATIONS: Additional History: EXAM MEASUREMENTS: Bone mineral densitometry was performed using the [employer] System. Bone mineral density as measured about the Lumbar spine is: ----- L1-L4(G/cm2): 0.938 T Score Values are as follows: ----- L1: -1.7 ----- L2: -2.5 ----- L3: -2.1 ----- L4: -1.9 ----- L1-L4: -2.0 Z Score Values are as follows: ----- L1: -0.7 ----- L2: -1.6 ----- L3: -1.2 ----- L4: -1.0 ----- L1-L4: -1.2 Bone mineral density : baseline Bone mineral density about the R hip (g/cm2): 0.877 Bone mineral density about the L hip (g/cm2): 0.885 T Score values are as follows: -----R Neck: -1.1 -----L Neck: -1.3 -----R Total: -1.0 -----L Total: -1.0 Z Score values are as follows: -----R Neck: 0.3 -----L Neck: 0.2 -----R Total: 0.2 -----L Total: 0.3 Bone mineral density : baseline FRAX%s: The graph provided illustrates a 19.5% chance for a major osteoporotic fx and a 10.0% chance for the hips probability for fx in 10 years time. IMPRESSION: Osteopenia (T Score between -2.5 and -1). There is slightly increased risk of fracture and the patient may be considered for treatment. Re-Screen 2-5 years. NOTE: T-SCORE=SD OF THE YOUNG ADULT MEAN.
== END | disposition home or self-care (01) ==
LOC: RADMAMWWP 07:16
PROVIDERS: ATTEND Family Medicine
DX: Z12.31 Encounter for screening mammogram for malignant neoplasm of breast (principal); M81.0 Age-related osteoporosis without current pathological fracture; M85.89 Other specified disorders of bone density and structure, multiple sites; Z78.0 Asymptomatic menopausal state; Z80.3 Family history of malignant neoplasm of breast
CPT/HCPCS: 77063; 77067; 77080

== ENCOUNTER → 2024-03-27 | Outpatient (CLI) | payer MEDICARE ==
--- NOTE | 2024-03-27 11:07 | MM ---
Reason for Exam: Screening (asymptomatic). Last screening mammogram was performed 12 month(s) ago. Patient History: Menarche at age 14. First Full-Term at age 19. Postmenopausal. Patient has history of breast feeding. 09/04/2000, Benign MG pre op needle loc LT - 2 on the left side. 1999, Cyst Aspiration on the Left side. Sister had breast cancer, age 83. Risk Values: Yue 5 year model risk: 3.5%. NCI Lifetime model risk: 5.8%. Prior Study Comparison: 02/15/2022 Bilateral MG 3D screening mammo w/cad, [facility]. 02/22/2022 Bilateral MG 3D work up w/cad [facility], [facility]. 03/13/2023 Bilateral MG 3D screening mammo w/cad, [facility]. Tissue Density: The breasts are extremely dense, which lowers the sensitivity of mammography. Findings: Analyzed By CAD. There is no suspicious group of microcalcifications or new suspicious mass in either breast. Overall Assessment: Benign, BI-RAD 2 Management: Screening Mammogram of both breasts in 1 year. . Patient should continue monthly self-breast exams. A clinical breast exam by your physician is recommended on an annual basis. This exam should not preclude additional follow-up of suspicious palpable abnormalities. Note on Yue scores and lifetime risk: 1. A Yue score greater than 3% is considered moderate risk. If this is the case, consider specialist referral to assess eligibility for a risk reducing agent. 2. If overall lifetime risk for the development of breast cancer is 20% or higher, the patient may qualify for future screening with alternating mammogram and breast MRI. [facility], , 03/27/2024 11:03 AM. Electronically signed and approved by: Juaquin Ramirez M.D. Radiologis
== END | disposition home or self-care (01) ==
LOC: RADMAMWWP 06:53
PROVIDERS: ATTEND Family Medicine
DX: Z12.31 Encounter for screening mammogram for malignant neoplasm of breast (principal); Z78.0 Asymptomatic menopausal state; Z80.3 Family history of malignant neoplasm of breast; R92.343 Mammographic extreme density, bilateral breasts
CPT/HCPCS: 77063; 77067